=== PATIENT | female | born 1960 | race Two or more races ===

== ENCOUNTER → 2025-02-20 | Outpatient (CLI) | payer MEDICARE, MEDICAID, SELFPAY ==
--- NOTE | 2025-02-20 14:45 | XR_ITS ---
Examination: CT chest with intravenous contrast CT abdomen with intravenous contrast CT pelvis with intravenous contrast 2-D coronal and sagittal reconstructions Time of exam: February 20, 2025 1509 hours, comparison February 14, 2024, PET CT scan 03/20/2022 INDICATIONS: Diagnosis malignant neoplasm endometrium, 2016, pelvic mass, restaging CTDI: vol (mGy) : 22 DLP: (mGycm): 747 Technique: Multiple axial images of the chest, abdomen and pelvis with intravenous contrast, 3.0 mm slice thickness. Images obtained post intravenous injection Isovue 370 60 cc. 2-D sagittal and coronal reconstructions. Low dose protocols were performed. One or more of the following dose reduction techniques were used; automated exposure control, adjustment of the mA and/or KV according to patient size, use of iterative reconstruction technique. Findings: No thoracic aortic aneurysm dilatation No pulmonary artery emboli. No paratracheal tracheobronchial or bronchopulmonary adenopathy. No pneumonia, pulmonary edema, pleural disease or pulmonary nodules. No interval liver splenic lesions Gallbladder wall is thickened No pancreatic or adrenal mass No hydronephrosis Aorta normal size No interval abdominal or pelvic lymphadenopathy Normal appendix There is no pelvic mass on this study Absent uterus Urinary bladder intact Severe osteopenia IMPRESSION: No interval metastatic disease
== END | disposition home or self-care (01) ==
PROVIDERS: PCP Physician Assistant; Referring Provider Obstetrics & Gynecology Gynecologic Oncology; Visit Provider Obstetrics & Gynecology Gynecologic Oncology
DX: C54.1 Malignant neoplasm of endometrium (principal)
CPT/HCPCS: 71260; 74177; A4649; Q9967